=== PATIENT | male | born 1950 | race Caucasian/White ===

== ENCOUNTER 2016-05-03 16:04 | Emergency (ER) | payer OTHER ==
--- NOTE | 2016-05-03 18:48 | DIAGNOSTIC IMAGING REPORT ---
PROCEDURE: US ABDOMEN ULTRASOUND-LIMITED INDICATION: PAIN TECHNIQUE: Kennedy scale and color Doppler sonographic images were obtained of the right upper quadrant. COMPARISON: None. FINDINGS: Suboptimal study due to body habitus. The liver is normal in size, contour, and echotexture. No mass or biliary dilatation. The gallbladder is filled with stones. The wall thickness is normal. No De La Garza's sign or pericholecystic fluid. Common duct is normal caliber at 2.4 mm. The pancreas was not well seen. The visible portion of the inferior vena cava, abdominal aorta, and portal vein appear normal with appropriate direction of flow in the portal vein. The right kidney is normal measuring 11.1 cm in length. No free fluid in the right upper quadrant. IMPRESSION: 1. Cholelithiasis without convincing sonographic evidence of cholecystitis. 2. Nonvisualization of the pancreas.
--- NOTE | 2016-05-03 19:42 | ED CLINICAL REPORT ---
Clinical Report - Physicians/Mid Levels [facility] [address] [place] [address] 05/03/2016 16:05 Patient: CAROLINE IGLESIAS Arrived- By private vehicle. Historian- patient. HISTORY OF PRESENT ILLNESS Chief Complaint: ABDOMINAL PAIN. At its maximum, severity described as moderate. When seen in the E.D., severity described as moderate. Modifying factors- worsened by food. Not relieved by anything. It is described as sharp. No radiation. It is described as located in the right upper quadrant and in the upper abdomen. This started past 2 days and is still present (staying the same). It was gradual in onset and has been intermittent but is not gone now. The patient has had nausea. No loss of appetite, vomiting or diarrhea. No additional abdominal pain. No recent travel. Similar symptoms previously: None. Recent medical care: Not recently seen/assessed. REVIEW OF SYSTEMS No constipation, black stools, hematemesis, bloody stools or fever. All systems otherwise negative, except as recorded above. PAST HISTORY See nurses notes. SOCIAL HISTORY Never smoker. No alcohol use or drug use. No recent travel. Is a local resident. FAMILY HISTORY (gallbladder problems throughout first degree relatives). ADDITIONAL NOTES The nursing notes have been reviewed. PHYSICAL EXAM Vital Signs: 05/03/2016 16:13 BP: 116/86. HR: 78. RR: 18. O2 saturation: 95%. Temp: 98.8 F. Pain level now: 7/10. Blood pressure normal. Oxygen saturation normal. Appearance: Alert. Oriented X3. No acute distress. (non-toxic). Eyes: Pupils equal, round and reactive to light. Eyes normal inspection. ENT: Ears normal. Nose normal. Pharynx normal. Neck: Normal inspection. Neck supple. CVS: Normal heart rate and rhythm. Heart sounds normal. Pulses normal. Respiratory: No respiratory distress. Breath sounds normal. Chest nontender. Abdomen: Soft. Mild tenderness in the right upper quadrant. Bowel sounds normal. No organomegaly. No mass. Back: Normal inspection. Skin: Skin warm and dry. Normal skin color. No rash. Normal skin turgor. Extremities: Extremities exhibit normal ROM. No lower extremity edema. LABS, X-RAYS, AND EKG Abdominal Sonogram: (PROCEDURE: US ABDOMEN ULTRASOUND-LIMITED INDICATION: PAIN TECHNIQUE: Kennedy scale and color Doppler sonographic images were obtained of the right upper quadrant. COMPARISON: None. FINDINGS: Suboptimal study due to body habitus. The liver is normal in size, contour, and echotexture. No mass or biliary dilatation. The gallbladder is filled with stones. The wall thickness is normal. No De La Garza's sign or pericholecystic fluid. Common duct is normal caliber at 2.4 mm. The pancreas was not well seen. The visible portion of the inferior vena cava, abdominal aorta, and portal vein appear normal with appropriate direction of flow in the portal vein. The right kidney is normal measuring 11.1 cm in length. No free fluid in the right upper quadrant. IMPRESSION: 1. Cholelithiasis without convincing sonographic evidence of cholecystitis. 2. Nonvisualization of the pancreas.). Laboratory Tests: UA-Culture if indicated: (PRATIK: 05/03/2016 16:50) ( MsgRcvd 05/03/2016 17:08) Final results Test Result Flag Units (Reference) URINE COLOR YELLOW URINE APPEARANCE CLEAR URINE GLUCOSE NEGATIVE (NEGATIVE) URINE BILIRUBIN NEGATIVE (NEGATIVE) URINE KETONE NEGATIVE (NEGATIVE) URINE SPECIFIC GRAVITY 1.015 (1.010-1.030) URINE PH 7.5 (5.0-8.0) URINE PROTEIN NEGATIVE (NEGATIVE) URINE UROBILINOGEN 2.0 EU/dL (0.2-1.0) The urobilinogen reagent area may react with interferingsubstances known to react with Tim's reagent such asp-aminosalicylic acid and sulfonamides. Atypical colorreactions may be obtained in the presence of highconcentrations of p-aminobenzoic acid. The absence ofurobilinogen cannot be determined with this test. URINE NITRITE NEGATIVE (NEGATIVE) URINE BLOOD TRACE-INTACT (NEGATIVE) URINE LEUK ESTERASE NEGATIVE (NEGATIVE) URINE RBC 1-3 rbc/hpf (0-1) URINE WBC RARE wbc/hpf (0-1) URINE EPITHELIAL CELLS RARE EPI/hpf (0-5) URINE BACTERIA NONE SEEN (NONE SEEN) URINE COMMENT CULT NOT INDICATED URINE CULTURES ARE SET-UP BASED ON THE FOLLOWING CRITERIA:POSITIVE NITRITEPOSITIVE LEUKOCYTE ESTERASEGREATER THAN 10 WHITE BLOOD CELLSMODERATE (2+) OR GREATER BACTERIA CBC w Diff: (PRATIK: 05/03/2016 18:40) ( [facility]56[facility] Final results Test Result Flag Units (Reference) WHITE BLOOD COUNT 9.2 K/uL (4.5-11.5) RED BLOOD COUNT 4.22 L M/uL (4.50-5.90) HEMOGLOBIN 12.2 L gm/dL (13.5-17.5) HEMATOCRIT 36.9 L % (41.0-53.0) MEAN CELL VOLUME 88 fL (80-100) MEAN CORPUSCULAR HGB 29 pg (26-34) MEAN CORPUSCULAR HGB CONC 33 g/dL (31-37) RED CELL DISTRIBUTION WIDTH 14.7 % (11.6-14.8) PLATELET COUNT 265 K/uL (150-400) NEUTROPHIL % 71.3 % (50-75) LYMPH % 19.5 L % (25-40) MONO % 7.6 % (3-14) EOSINOPHIL % 1.1 % (0-4) BASOPHIL % 0.5 % (0-2) CMP: (PRATIK: 05/03/2016 18:40) ( [facility] 05/03/2016 19:15) IP Test Result Flag Units (Reference) GLUCOSE 115 H mg/dL (70-110) BUN 21 H mg/dL (7-18) CREATININE 1.1 mg/dL (0.6-1.3) Estimated GFR >60 mL/min Estimated GFR- >60 mL/min Note: Persistent reduction over 3 months in eGFR<60 mL/min/1.73 m2 defines CKD. Patients with eGFR values>=60 mL/min/1.73 m2 may also have CKD if evidence ofpersistent proteinuria. Additional information may be foundat www.[email or web address].org. SODIUM 131 L mmol/L (136-145) POTASSIUM 4.5 mmol/L (3.5-5.1) CHLORIDE 94 L mmol/L (98-107) CARBON DIOXIDE 28 mmol/L (21-32) CALCIUM 9.0 mg/dL (8.5-10.1) TOTAL PROTEIN 7.7 g/dL (6.4-8.2) ALBUMIN 3.3 g/dL (3.3-5.0) BILIRUBIN, TOTAL 0.6 mg/dL (0.0-1.0) ALKALINE PHOSPHATASE 347 H U/L (46-116) ALT (SGPT) 76 U/L (12-78) LIPASE 173 U/L (73-393) . PROGRESS AND PROCEDURES Course of Care: The patient is a pleasant presenting for abdominal pain. Patient having signs and symptoms needing evaluation for pancreatitis, biliary pathology, UTI, and liver abnormalities. Medications ordered. Patient agreeable to treatment and plan. Do not feel patient has messentric ischemia or AAA. Exam and history are not consistent with these entities. Work up was remarkable for the findings above. Pain has significantly improved while here in the ED. Patients repeat examination is benign. Do not feel patient has a surgical abdomen. Patient also continues to be non-toxic. Patient is a good outpatient candidate. I discussed with the patient workup, diagnosis, home care, follow-up, and return precautions. All questions have been answered. The patient expressed understanding of these instructions and was agreeable to them. Do not feel patient needs to be admitted to the hospital or require further ED workup/evaluation. Patient report he will follow up with a general surgeon through referral from his PCP. Disposition: Discharged. Condition: good. CLINICAL IMPRESSION Acute right upper quadrant abdominal pain. 05/03/2016 16:13 BP: 116/86. HR: 78. RR: 18. O2 saturation: 95%. Temp: 98.8 F. Pain level now: 7/10. Blood pressure normal. Oxygen saturation normal. Biliary colic. Cholelithiasis (without cholecysitis). INSTRUCTIONS Warnings: GENERAL WARNINGS: Return or contact your physician immediately if your condition worsens or changes unexpectedly, if not improving as expected, or if other problems arise. SPECIFICALLY, return if you develop pain, fever, vomiting, the inability to keep fluids down, blood in vomitus, blood in diarrhea, fainting or lightheadedness. Your Current Medications: CONTINUE TAKING THE FOLLOWING MEDICATIONS: Aticand 32 mg daily*. Atorvastatin Calcium Oral : at bedtime. Gabapentin Oral : 1200 mg daily. Hydrochlorothiazide Oral : 12.5 mg daily. LaMICtal Oral : 1.5 tablets daily. Motrin 50 mg *. Trileptal Oral : 900 mg daily. Prescription Medications: Zofran (orally disintegrating tablets) 4 mg: take 1 orally every 8 hours as needed for nausea and vomiting. Dispense ten (10). No refill. Substitution is permissible. Motrin 600 mg tablets: take 1 tablet orally every 6 hours as needed for pain, stiffness or swelling. Dispense thirty (30). No refill. Substitution is permissible. Follow-up: Return to the emergency department as needed. Follow up with a surgeon in one week. Reason for referral: recheck today's concerns. Summary of care provided to patient via paper. Follow up with your doctor in three days. Reason for referral: recheck today's concerns. Summary of care provided to patient via paper. Screening today revealed the patient's blood pressure to be in the normal range. Understanding of the discharge instructions verbalized by patient. (Electronically signed by Grady Ovalles Dr. 05/10/2016 14:21)
--- NOTE | 2016-05-03 19:42 | ED ORDER SUMMARY ---
..... Patient: CAROLINE IGLESIAS OrderSheet [facility] VisitID: [id number] [place] [address] 66y, M Registration Date/Time: 05/03/2016 ORDER SHEET Weight: 104.3 kg (stated) Allergies: Opiates GENERAL ORDERS: UA-Culture if indicated Urgent (16:54 05/03/2016 Nargis R.NLeidy verbal order read back to Damir Casanova) (Ack 16:56 LISAoerner) (17:55 LSullivan R.N.) US Abdomen Limited (No) Urgent (17:43 05/03/2016 Damir Casanova) (Ack 17:48 LISAoerner) (18:34 Betsyivan R.N.) CBC w Diff Urgent (17:43 05/03/2016 Damir Casanova) (Ack 17:48 Earl) (18:50 JBlunadlenaomi R.N.) CMP Urgent (17:43 05/03/2016 Damir Casanova) (Ack 17:48 LISAoelauriener) (18:50 JBlunadley R.N.) Lipase Urgent (17:43 05/03/2016 Damir Casanova) (Ack 17:48 LISAoelauriener) (18:50 JBoardley R.N.) Pulse oximeter (17:44 05/03/2016 Damir Casanova) (Ack 17:48 Earl) (20:09 Shannon Estrada.N.) MEDICATION ORDERS: GI Cocktail WHITE PO 30 mL (NOW) (17:43 05/03/2016 Damir Casanova) (18:29 CONCHITAullivan R.N.) IV FLUIDS: IV Saline Lock (17:43 05/03/2016 Damir Casanova) (Ack 18:29 JBoardley R.N.) (18:50 JBoardley R.N.) ORDER SHEET NOTES: [Electronically signed by Lisbeth Jarrell R.N. (20:09 05/03/2016)] [Electronically signed by Grady Ovalles Dr. (14:21 05/10/2016)] [Electronically locked/signed by Lisbeth Jarrell R.N. (20:09 05/03/2016)]
--- NOTE | 2016-05-03 19:42 | ED ORDER SUMMARY ---
..... Patient: CAROLINE IGLESIAS OrderSheet [facility] VisitID: [id number] [place] [address] 66y, M Registration Date/Time: 05/03/2016 ORDER SHEET Weight: 104.3 kg (stated) Allergies: Opiates GENERAL ORDERS: UA-Culture if indicated Urgent (16:54 05/03/2016 Nargis R.NLeidy verbal order read back to Damir Casanova) (Ack 16:56 LISAoerner) (17:55 LSullivan R.N.) US Abdomen Limited (No) Urgent (17:43 05/03/2016 Damir Casaonva) (Ack 17:48 LISAoerner) (18:34 Betsyivan R.N.) CBC w Diff Urgent (17:43 05/03/2016 Damir Casanova) (Ack 17:48 Earl) (18:50 JBlunadlenaomi R.N.) CMP Urgent (17:43 05/03/2016 Damir Casanova) (Ack 17:48 LISAoelauriener) (18:50 JBlunadley R.N.) Lipase Urgent (17:43 05/03/2016 Damir Casanova) (Ack 17:48 LISAoelauriener) (18:50 JBoardley R.N.) Pulse oximeter (17:44 05/03/2016 Damir Casanova) (Ack 17:48 Earl) (20:09 Shannon Estrada.N.) MEDICATION ORDERS: GI Cocktail WHITE PO 30 mL (NOW) (17:43 05/03/2016 Damir Casanova) (18:29 CONCHITAullivan R.N.) IV FLUIDS: IV Saline Lock (17:43 05/03/2016 Damir Casanova) (Ack 18:29 JBoardley R.N.) (18:50 JBoardley R.N.) ORDER SHEET NOTES: [Electronically signed by Lisbeth Jarrell R.N. (20:09 05/03/2016)] [Electronically signed by Grady Ovalles Dr. (14:21 05/10/2016)] [Electronically locked/signed by Lisbeth Jarrell R.N. (20:09 05/03/2016)]
--- NOTE | 2016-05-03 19:42 | ED NURSING NOTES ---
Clinical Report - Nurses [facility] [address] [place] [address] 05/03/2016 16:05 Patient: CAROLINE IGLESIAS TRIAGE Triage time 16:13. Acuity: LEVEL 3. Chief Complaint: (right flank pain, radiates to the front right pelvic area and abdomen). Alert. --16:23 Sunita Garcia R.N. 16:13 05/03/16. BP: 116/86. HR: 78. RR: 18. O2 saturation: 95%. Temp: 98.8 F. Pain level now: 09/18. --16:23 Sunita Garcia R.N. Weight: 104.3 kg stated. Height/Length: 68 inches Per Patient. BMI: 35. --16:14 Sunita Garcia R.N. Medications Motrin 50 mg . --16:19 Sunita Garcia R.N. Trileptal Oral 900 mg, daily. --16:19 Sunita Garcia R.N. LaMICtal Oral 1.5 tablets, daily. --16:20 Sunita Garcia R.N. Gabapentin Oral 1200 mg daily. --16:20 Sunita Garcia R.N. Hydrochlorothiazide Oral 12.5 mg, daily. --16:21 Sunita Garcia R.N. Aticand 32 mg daily. --16:21 Sunita Garcia R.N. Atorvastatin Calcium Oral, at bedtime. --16:22 Sunita Garcia R.N. Allergies Opiates.(vomiting) --16:18 Sunita Garcia R.N. History Arrived by private vehicle. Historian: patient. Primary physician (Toña BURRELL). This started today. Onset. (2 hours ago). PAST MEDICAL HX: Type II diabetes mellitus treated with oral medication. ( has been treated for Hepatitis B, C, and TB in past). SOCIAL HX: Former smoker, end date 1991. FALL RISK ASSESSMENT: Fall risk assessment completed. No fall risk identified. FUNCTIONAL ASSESSMENT: Functional assessment performed. Pt wears leg braces due to cerebral palsy. --16:23 Sunita Garcia R.N. SOCIAL HX: Alcohol use. Patient is a recovering alcoholic. --16:45 Sunita Garcia R.N. SOCIAL HX: History of drug use. Is a recovering addict. --16:45 Sunita Garcia R.N. ADDITIONAL SURGERIES: Achilles tendon surgeries x 2. Left hand and arm. Tonsillectomy & Adenoidectomy. --16:18 Sunita Garcia R.N. Interventions ID and allergy band on patient. To room. --16:23 Sunita Garcia R.N. PHYSICAL ASSESSMENT 16:24 05/03/16. GENERAL / NEURO / PSYCH: Alert. Oriented X 4. Appears in no acute distress. RESPIRATORY: Respirations not labored. --16:24 Sunita Garcia R.N. NURSING PROGRESS NOTES 16:24 05/03/16. Patient identifiers checked. Call light placed in reach. Bed placed in lowest position. Patient ready for evaluation- chart flagged. --16:24 Sunita Garcia R.N. 16:28 05/03/16. ( Urinal placed at bedside, pt asked to give a urine specimen.). --16:28 Sunita Garcia R.N. 16:55 05/03/16. Patient ID band checked for patient name and birthdate: patient confirmed. Clean catch urine collected with return of yellow-colored clear urine; sample sent to lab for urinalysis and culture. --16:55 Sunita Garcia R.N. 17:58 05/03/16. ( Ultrasound here). --17:58 Sunita Garcia R.N. 18:29 05/03/2016 GI COCKTAIL WHITE (Simethicone) PO 30 mL given. Allergies verified and confirmed 5 rights. --18:29 Sunita Garcia R.N. 18:40 05/03/2016 Site #1 started via IV in the left antecubital space with an 22g angiocath, with aseptic technique and good blood return; one attempt. Blood drawn: rainbow set. Labeled in the presence of the patient and sent to the lab. Saline lock flushed with 10 mL saline. --18:50 Aime Green R.N. 19:06 05/03/16. Care transferred and report received (from GREGORY Dorsey). --19:06 Lisbeth Jarrell R.N. 19:30 05/03/16. The patient is calm and resting quietly. Overall patient status is the same- he states feels the same. Patient waiting for disposition. --19:30 Lisbeth Jarrell R.N. 19:29 05/03/16. BP: 110/55. HR: 66. RR: 16. O2 saturation: 100%. Temp: 97.9 F. Pain level now: 06/19. --19:30 Lisbeth Jarrell R.N. DISPOSITION / DISCHARGE 20:05 05/03/2016 Site #1 removed upon discharge. Catheter intact. Bandaid applied. --20:08 Lisbeth Jarrell R.N. 20:05/03/16. Condition at departure: improved and stable. The goals identified in the patient's plan of care were met. No learning barriers present. Discharge instructions provided and reviewed with the patient. Reviewed medication(s) side effects, precautions, dosing and course information. Prescription(s) given to the patient. Reviewed referral to a surgeon for followup. Summary of care provided to patient via paper. Patient verbalized understanding. Written instructions provided in [place]. The patient was discharged home and accompanied by family. He left the Emergency Department ambulatory and via private vehicle. Family member driving. --20:09 Lisbeth Jarrell R.N. 19:29 05/03/16. BP: 110/55. HR: 66. RR: 16. O2 saturation: 100%. Temp: 97.9 F. Pain level now: 06/19. 16:13 05/03/16. BP: 116/86. HR: 78. RR: 18. O2 saturation: 95%. Temp: 98.8 F. Pain level now: 09/18. --20:09 Lisbeth Jarrell R.N. Departure time: 20:09 May 03 2016. --20:09 Lisbeth Jarrell R.N. Locked/Released at 05/03/2016 20:09 by Lisbeth Jarrell R.N.
--- NOTE | 2016-05-10 14:21 | ED MAR SUMMARY ---
..... Medication Administration Record [facility] [address] [place] [address] Patient: CAROLINE IGLESIAS Visit ID: [id number] 66y, M Weight: 104.3 kg Height/Length: 68 in BMI: 35 ALLERGIES: Opiates Given 18:29 05/03/2016 Sunita Garcia R.N. Medication Administered: GI COCKTAIL WHITE [PO] (SIMETHICONE), Dose: 30 mL PO. Medication Ordered: GI Cocktail WHITE PO 30 mL (NOW).
--- NOTE | 2016-05-10 14:21 | ED MED RECONCILIATION SUMMARY ---
Patient: CAROLINE IGLESIAS Medication Reconciliation Report [facility] VisitID: [id number] [address] [place] [address] 66y, M Registration Date/Time: 05/03/2016 Weight: 104.3 kg Height/Length: 68 in. BMI: 35.0 ALLERGIES: Opiates The patient's Home Medications are listed below: CONTINUE TAKING THE FOLLOWING MEDICATIONS: Aticand 32 mg daily Atorvastatin Calcium Oral, at bedtime Gabapentin Oral 1200 mg daily Hydrochlorothiazide Oral 12.5 mg, daily LaMICtal Oral 1.5 tablets, daily Motrin 50 mg Trileptal Oral 900 mg, daily The source(s) of the original Home Medication information: Not obtained. The following Medications were given to the patient in the Emergency Department: GI COCKTAIL WHITE [PO] PO 30 mL, administered: 05/03/2016 6:29:00 PM The following Medications were prescribed to the patient: Zofran (orally disintegrating tablets) 4 mg: take 1 orally every 8 hours as needed for nausea and vomiting. Dispense ten (10). No refill. Substitution is permissible. -- Grady Ovalles Dr. Motrin 600 mg tablets: take 1 tablet orally every 6 hours as needed for pain, stiffness or swelling. Dispense thirty (30). No refill. Substitution is permissible. -- Grady Ovalles Dr.
--- NOTE | 2016-05-10 14:21 | ED MAR SUMMARY ---
..... Medication Administration Record [facility] [address] [place] [address] Patient: CAROLINE IGLESIAS Visit ID: [id number] 66y, M Weight: 104.3 kg Height/Length: 68 in BMI: 35 ALLERGIES: Opiates Given 18:29 05/03/2016 Sunita Garcia R.N. Medication Administered: GI COCKTAIL WHITE [PO] (SIMETHICONE), Dose: 30 mL PO. Medication Ordered: GI Cocktail WHITE PO 30 mL (NOW).
--- NOTE | 2016-05-10 14:21 | ED MED RECONCILIATION SUMMARY ---
Patient: CAROLINE IGLESIAS Medication Reconciliation Report [facility] VisitID: [id number] [address] [place] [address] 66y, M Registration Date/Time: 05/03/2016 Weight: 104.3 kg Height/Length: 68 in. BMI: 35.0 ALLERGIES: Opiates The patient's Home Medications are listed below: CONTINUE TAKING THE FOLLOWING MEDICATIONS: Aticand 32 mg daily Atorvastatin Calcium Oral, at bedtime Gabapentin Oral 1200 mg daily Hydrochlorothiazide Oral 12.5 mg, daily LaMICtal Oral 1.5 tablets, daily Motrin 50 mg Trileptal Oral 900 mg, daily The source(s) of the original Home Medication information: Not obtained. The following Medications were given to the patient in the Emergency Department: GI COCKTAIL WHITE [PO] PO 30 mL, administered: 05/03/2016 6:29:00 PM The following Medications were prescribed to the patient: Zofran (orally disintegrating tablets) 4 mg: take 1 orally every 8 hours as needed for nausea and vomiting. Dispense ten (10). No refill. Substitution is permissible. -- Grady Ovalles Dr. Motrin 600 mg tablets: take 1 tablet orally every 6 hours as needed for pain, stiffness or swelling. Dispense thirty (30). No refill. Substitution is permissible. -- Grady Ovalles Dr.
--- NOTE | 2016-05-10 14:21 | ED DISCHARGE INSTRUCTIONS ---
Patient: CAROLINE IGLESIAS General Instructions [facility] VisitID: [id number] [place] [address] 66y, M Registration Date/Time: 05/03/2016 Acute right upper quadrant abdominal pain. 05/03/2016 16:13 BP: 116/86. HR: 78. RR: 18. O2 saturation: 95%. Temp: 98.8 F. Pain level now: 7/10. Blood pressure normal. Oxygen saturation normal. Biliary colic. Cholelithiasis (without cholecysitis). INSTRUCTIONS Warnings: GENERAL WARNINGS: Return or contact your physician immediately if your condition worsens or changes unexpectedly, if not improving as expected, or if other problems arise. SPECIFICALLY, return if you develop pain, fever, vomiting, the inability to keep fluids down, blood in vomitus, blood in diarrhea, fainting or lightheadedness. Your Current Medications: CONTINUE TAKING THE FOLLOWING MEDICATIONS: Aticand 32 mg daily*. Atorvastatin Calcium Oral : at bedtime. Gabapentin Oral : 1200 mg daily. Hydrochlorothiazide Oral : 12.5 mg daily. LaMICtal Oral : 1.5 tablets daily. Motrin 50 mg *. Trileptal Oral : 900 mg daily. Prescription Medications: Zofran (orally disintegrating tablets) 4 mg: take 1 orally every 8 hours as needed for nausea and vomiting. Dispense ten (10). No refill. Substitution is permissible. Motrin 600 mg tablets: take 1 tablet orally every 6 hours as needed for pain, stiffness or swelling. Dispense thirty (30). No refill. Substitution is permissible. Follow-up: Return to the emergency department as needed. Follow up with a surgeon in one week. Reason for referral: recheck today's concerns. Summary of care provided to patient via paper. Follow up with your doctor in three days. Reason for referral: recheck today's concerns. Summary of care provided to patient via paper. Screening today revealed the patient's blood pressure to be in the normal range. Understanding of the discharge instructions verbalized by patient. ADDITIONAL INFORMATION Abdominal Pain,Uncertain Cause [Male] Based on your visit today, the exact cause of your abdominalpain is not clear. Your exam and tests do not indicate a dangerous cause at this time. However, the signs of a serious problem may take more time to appear. Although your evaluation was reassuring today, sometimes early in the course of many conditions, exam and lab tests can appear normal. Therefore, it is important for you to watch for any new symptoms or worsening of your condition. Causes It may not be obvious what caused your symptoms. Pay attention to things that do seem to make your symptoms worse or better and discuss this with your doctor when you follow up. Diagnosis The evaluation of abdominal pain in the emergency department may onlyrequire an exam by the doctor or it may include blood, urine or imaging studies, depending on many factors. Sometimes exams and tests can identify a cause but in many cases, a clear cause is not found. Further testing at follow up visits may help to suggest a clear diagnosis. Home Care Rest as much as possible until your next exam. Try to avoid any medications (unless otherwise directed by your doctor), foods, activities, or other factors that you may have contributed to your symptoms. Try to eat foods that you know that you have tolerated well in the past. Certain diets may be recommended for some conditions that cause abdominal pain. However, since the cause of your symptoms may not be clear, discuss your diet more with your primary care provider or specialist for further recommendations. Eating several small meals per day as opposed to 2 or 3 larger meals may help. Monitor closely for anything that may make your symptoms worse or better. Pay close attention to symptoms below that may indicate worsening of your condition. Follow Up and Precautions See your doctoras instructed or sooneror if your symptoms are not improving.In some cases, you may need more testing. When to Seek Medical Attention Contact your doctor or see medical attention ifany of the following occur: Pain is becoming worse You are unable to take your medications due to excessive vomiting Swelling of the abdomen Fever of 100.4F (38C) or higher, or as directed by your health care provider Blood in vomit or bowel movements (dark red or black color) Jaundice (yellow color of eyes and skin) New onset of weakness, dizziness or fainting New onset of chest, arm, back, neck or jaw pain GallstonesWith Biliary Colic [Confirmed Dx] The abdominal pain that you have today is due to spasm of the gallbladder. The gallbladder is a small sac under the liver which stores and releases bile. Bile is a fluid that aids in the digestion of fat. A gallstone may form inside the gallbladder and block the flow of bile fluid. This causes mild to severe crampy pain in the mid or right upper abdomen with nausea and vomiting. Home Care: Rest in bed and follow a clear liquid diet until feeling better. If pain or nausea medicine was given to help with your symptoms, take these as directed. Fat in your diet makes the gallbladder contract and may cause increased pain. Therefore, avoid fat in your diet over the next two days and follow a low-fat diet after that. If you are overweight, a low-fat diet will also help you lose weight. Follow Up with your doctor. There is a 50% chance that you will have another episode of pain from your gallstones during the next 2 years. Removal of the gallbladder is the treatment of choice to prevent this. Schedule an appointment with your own doctor during the next week to discuss the treatment options. Get Prompt Medical Attention if any of the following occur: Pain gets worse or moves to the right lower abdomen Repeated vomiting Swelling of the abdomen Pain lasts over 6 hours Fever of 100.4F (38C) or higher, or as directed by your healthcare provider Weakness, dizziness or fainting Dark urine or light colored stools Yellow color of the skin or eyes Chest, arm, back, neck or jaw pain Ondansetron Oral disintegrating tablet What is this medicine? ONDANSETRON (on JAMI se pita) is used to treat nausea and vomiting caused by chemotherapy. It is also used to prevent or treat nausea and vomiting after surgery. How should I use this medicine? These tablets are made to dissolve in the mouth. Do not try to push the tablet through the foil backing. With dry hands, peel away the foil backing and gently remove the tablet. Place the tablet in the mouth and allow it to dissolve, then swallow. While you may take these tablets with water, it is not necessary to do so. Talk to your correspondence coordinator regarding the use of this medicine in children. Special care may be needed. What side effects may I notice from receiving this medicine? Side effects that you should report to your doctor or health respiratory care practitioner as soon as possible: allergic reactions like skin rash, itching or hives, swelling of the face, lips, or tongue breathing problems dizziness fast or irregular heartbeat feeling faint or lightheaded, falls fever and chills swelling of the hands and feet tightness in the chest Side effects that usually do not require medical attention (report to your doctor or health respiratory care practitioner if they continue or are bothersome): constipation or diarrhea headache What may interact with this medicine? Do not take this medicine with any of the following medications: -apomorphine -cisapride -dofetilide -dronedarone -pimozide -thioridazine -ziprasidone This medicine may also interact with the following medications: -carbamazepine -phenytoin -rifampicin -tramadol -other medicines that prolong the QT interval (cause an abnormal heart rhythm) What if I miss a dose? If you miss a dose, take it as soon as you can. If it is almost time for your next dose, take only that dose. Do not take double or extra doses. Where should I keep my medicine? Keep out of the reach of children. Store between 2 and 30 degrees C (36 and 86 degrees F). Throw away any unused medicine after the expiration date. What should I tell my health care provider before I take this medicine? They need to know if you have any of these conditions: heart disease history of irregular heartbeat liver disease low levels of magnesium or potassium in the blood an unusual or allergic reaction to ondansetron, granisetron, other medicines, foods, dyes, or preservatives or trying to get breast-feeding What should I watch for while using this medicine? Check with your doctor or health respiratory care practitioner as soon as you can if you have any sign of an allergic reaction. Ibuprofen Oral tablet What is this medicine? IBUPROFEN (eye BYOO proe fen) is a non-steroidal anti-inflammatory drug (NSAID). It is used for dental pain, fever, headaches or migraines, osteoarthritis, rheumatoid arthritis, or painful monthly periods. It can also relieve minor aches and pains caused by a cold, flu, or sore throat. How should I use this medicine? Take this medicine by mouth with a glass of water. Follow the directions on the prescription label. Take this medicine with food if your stomach gets upset. Try to not lie down for at least 10 minutes after you take the medicine. Take your medicine at regular intervals. Do not take your medicine more often than directed. A special MedGuide will be given to you by the pharmacist with each prescription and refill. Be sure to read this information carefully each time. Talk to your correspondence coordinator regarding the use of this medicine in children. Special care may be needed. What side effects may I notice from receiving this medicine? Side effects that you should report to your doctor or health respiratory care practitioner as soon as possible: allergic reactions like skin rash, itching or hives, swelling of the face, lips, or tongue black or bloody stools, blood in the urine or in vomit breathing problems changes in vision chest pain general ill feeling or flu-like symptoms nausea or vomiting redness, blistering, peeling or loosening of the skin, including inside the mouth slurred speech or weakness on one side of the body stomach pain unexplained weight gain or swelling unusually weak or tired yellowing of eyes or skin Side effects that usually do not require medical attention (report to your doctor or health respiratory care practitioner if they continue or are bothersome): constipation or diarrhea dizziness gas or heartburn stomach upset What may interact with this medicine? Do not take this medicine with any of the following medications: cidofovir ketorolac methotrexate pemetrexed This medicine may also interact with the following medications: alcohol aspirin diuretics lithium other drugs for inflammation like prednisone warfarin What if I miss a dose? If you miss a dose, take it as soon as you can. If it is almost time for your next dose, take only that dose. Do not take double or extra doses. Where should I keep my medicine? Keep out of the reach of children. Store at room temperature between 15 and 30 degrees C (59 and 86 degrees F). Keep container tightly closed. Throw away any unused medicine after the expiration date. What should I tell my health care provider before I take this medicine? They need to know if you have any of these conditions: asthma cigarette smoker drink more than 3 alcohol containing drinks a day heart disease or circulation problems such as heart failure or leg edema (fluid retention) high blood pressure kidney disease liver disease stomach bleeding or ulcers an unusual or allergic reaction to ibuprofen, aspirin, other NSAIDS, other medicines, foods, dyes, or preservatives or trying to get breast-feeding What should I watch for while using this medicine? Tell your doctor or healthcare professional if your symptoms do not start to get better or if they get worse. This medicine does not prevent heart attack or stroke. In fact, this medicine may increase the chance of a heart attack or stroke. The chance may increase with longer use of this medicine and in people who have heart disease. If you take aspirin to prevent heart attack or stroke, talk with your doctor or health respiratory care practitioner. Do not take other medicines that contain aspirin, ibuprofen, or naproxen with this medicine. Side effects such as stomach upset, nausea, or ulcers may be more likely to occur. Many medicines available without a prescription should not be taken with this medicine. This medicine can cause ulcers and bleeding in the stomach and intestines at any time during treatment. Ulcers and bleeding can happen without warning symptoms and can cause . To reduce your risk, do not smoke cigarettes or drink alcohol while you are taking this medicine. You may get drowsy or dizzy. Do not drive, use machinery, or do anything that needs mental alertness until you know how this medicine affects you. Do not stand or sit up quickly, especially if you are an older patient. This reduces the risk of dizzy or fainting spells. This medicine can cause you to bleed more easily. Try to avoid damage to your teeth and gums when you brush or floss your teeth. You have been given the following additional information: Abdominal Pain, Unknown Cause, (Male) Biliary Colic With Gallstone (Confirmed) Ondansetron Oral disintegrating tablet Ibuprofen Oral tablet (Electronically signed by Grady Ovalles Dr. 05/10/2016 14:21)
== END 2016-05-03 20:09 | disposition home or self-care (01) ==
LOC: ED SRH 16:04
DX: K80.70 Calculus of gallbladder and bile duct without cholecystitis without obstruction (principal); R10.11 Right upper quadrant pain; E11.9 Type 2 diabetes mellitus without complications; Z79.899 Other long term (current) drug therapy; Z88.5 Allergy status to narcotic agent
CPT/HCPCS: 90004; 90100; 92235; 95059